=== PATIENT | male | born 1975 | race African-American/Black ===

== ENCOUNTER → 2024-06-29 14:56 | Outpatient (AMB) | payer OTHER, SELFPAY ==
--- NOTE | 2024-06-29 14:58 | A.OFFVIS_ITS ---
Vital Signs 06/29/24 15:05 Height 5 ft 8 in Weight 234 lb 9.149 oz BMI 35.7 BP 144/86 H Blood Pressure Location Rt brachial Position Sitting Pulse 76 Pulse Source Pulse Oximeter Pulse Oximetry (%) 97 Oxygen Delivery Method Room Air Intake Visit Reasons: [place] consult Intake Note: NEW PATIENT Luis presents in office today for a scheduled colo scrn. Prior hx of colo/egd? None Meds and Allergies reviewed? Y Any significant concerns or questions? No abnormalities noted. Pharmacy verified? [facility] Radio Intelligence Operator Required: No Allergies No Known Allergies Allergy (Verified 06/29/24 15:01) HPI HPI [place] consult: Details: 48 year old? male with no significant past medical history is here today for pre colonoscopy screening.? Patient was sent to us by his PCP.? This is his first colonoscopy screening.? Patient denies any gastrointestinal symptoms in the past or at present.? Denies any personal or family history of gastrointestinal disease, colon polyps, or CRC.? Denies history of difficulty with sedation or anesthesia in the past.? Negative for history of sleep apnea.? Denies any history of cardiac, renal, pulmonary, or hepatic disease.?? No history of infectious? diseases like hepatitis A, B, C, HIV or tuberculosis.? Patient is not on any anticoagulation [facility] Medical History (Updated 06/29/24 @ 15:03 by Chris Reddy [facility]) HTN (hypertension) Social History Alcohol intake: current Comment: A few times per year Patient Tobacco Use Status: Former Tobacco user Tobacco use type: Cigarette Substance Use Type: Marijuana Review of Systems Const Denies weight gain and Denies weight loss ENT Reports no additional complaints, Denies dysphagia and Denies odynophagia Card Reports no additional complaints Resp Reports no additional complaints GI Denies abdominal pain, Denies belching, Denies melena, Denies bloating, Denies change in bowel habits, Denies dysphagia, Denies excessive flatus, Denies dyspepsia, Denies heartburn, Denies diarrhea, Denies loose stools, Denies nausea, Denies odynophagia and Denies vomiting Reports no additional complaints Musc Reports no additional complaints Neuro Reports no additional complaints Psych Reports no additional complaints Endo Reports no additional complaints Physical Exam Const General: healthy appearing and no acute distress Nutritional Appearance: obese Orientation/consciousness: patient oriented x3 Resp Effort & Inspection: normal respiratory effort, able to speak in complete sentences, no tracheal deviation and symmetric chest movement Auscultation: clear to auscultation bilaterally Cardio Rate: regular rate GI Inspection: Yes normal to inspection and No distended Palpation (GI): Soft to palpation, not firm, nontender and No hepatosplenomegaly present Auscultation: normal bowel sounds General: Yes no CVA tenderness Back/Spine/Pelvis Back: no CVA tenderness Skin General skin exam: elasticity normal, turgor normal and dry skin Neuro General: patient oriented x3 Psych Appearance: grossly normal Mental Status: mental status grossly normal Assessment & Plan Assessment & Plan (1) Screen for colon cancer: Code(s): Z12.11 - Encounter for screening for malignant neoplasm of colon Plan Patient denies any GI, cardiac or respiratory symptoms.? Denies any issues with anesthesia in the past.? Denies any history of sleep apnea.? No history infectious diseases in the past or present.? Not on any anticoagulation thera py.? No family or personal history of colon cancer or polyps.? Patient denies melena, hematochezia, unintentional weight loss or ribbon like stools.? Discussed at length the pre-procedure,? prep, diet & medications as well as what to expect prior, during and after the procedure.?? Stressed the importance of good bowel prep.? Recommended the use of Vaseline or Calmoseptine OTC & baby wipes with bowel movements to promote comfort.? ?Patient verbalizes understanding and agrees to plan of care.? He was given the opportunity to ask questions and all questions answered.? We will see him after the procedure.? Medications: New polyethylene glycol 3350 (Miralax) As directed by gastroenterology department at [facility] 238 grams PO ONCE 238 grams 0RF Z12.11 - Encounter for screening for malignant neoplasm of colon bisacodyl (Dulcolax (bisacodyl)) take 4 tabs at noon the day before your colonoscopy 20 mg (4 x 5 mg) PO ONCE 1 day 4 tabs 0RF Z12.11 - Encounter for screening for malignant neoplasm of colon Coding Level of Care Code New Pt Level 3 (12303) Diagnoses Screen for colon cancer Z12.11 Time Spent (min) 40 Comment 30 minutes spent with patient and additional 10 minutes spent reviewing his records
[2024-06-29 15:05] VITALS: BP 144/86; PULSE 76; O2SAT 97; BMI 35.7
== END ==
PROVIDERS: Visit Provider Nurse Practitioner Family
DX: Z01.818 Encounter for other preprocedural examination (principal); Z12.11 Encounter for screening for malignant neoplasm of colon
CPT/HCPCS: S0285

== ENCOUNTER → 2024-06-29 14:56 | Outpatient (BNVA) | payer OTHER, SELFPAY | PROVIDERS: Visit Provider Nurse Practitioner Family ==

== ENCOUNTER 2024-10-10 07:40 | Day surgery (SDC) | payer OTHER, SELFPAY ==
--- OUTSIDE RECORDS SUMMARY | 2024-09-08 14:42 | XMS_ITS | Clinical Summary ---
Author Organization [facility] Address [address] [place] [address] Care Team Providers Care Environmental Technician Name Role Phone Unknown Primary Care Provider [phone] Allergies No known active allergies Medications Medication Sig Dispensed Refills Start Date End Date Status ibuprofen (MOTRIN) 600 MG tablet Take 1 tablet (600 mg total) by mouth 4 times daily (every 6 hours) as needed for mild pain (pain). 20 tablet 10/15/2018 Active Social History Tobacco Use Types Packs/Day Years Used Date Smoking Tobacco: Light Smoker Smokeless Tobacco: Never Sex and Gender Information Value Date Recorded Sex Assigned at Not on file Gender Identity Not on file Sexual Orientation Not on file Last Filed Vital Signs Vital Sign Reading Time Taken Comments Blood Pressure 142/100 06/03/2020 7:43 AM EST Pulse 72 06/03/2020 7:43 AM EST Temperature 36.4 ??C (97.6 ??F) 06/03/2020 7:43 AM ES T Respiratory Rate 16 06/03/2020 7:43 AM EST Oxygen Saturation 99% 06/03/2020 7:43 AM EST Inhaled Oxygen Concentration - - Weight 104 kg (230 lb) 06/08/2018 6:57 PM EST Height - - Body Mass Index - - Plan of Treatment Health Maintenance Due Date Last Done Comments Hepatitis C Virus Screening 1976 HIV Screening 1989 DTaP/Tdap/Td Vaccines (1 - Tdap) 10/21/1995 Hepatitis B Vaccines (1 of 3 - 19+ 3-dose series) 10/21/1995 Colonoscopy 2021 Influenza Vaccine 02/10/2024 COVID-19 Vaccine (2023-2 5 season) 2024 Pneumococcal Vaccine: Pediat reece (0-5 Years) and At-Risk Patients (6 to 49 Years) Aged Out No longer eligible b ased on patient's age to complete this topic Care Teams Environmental Technician Relationship Specialty Start Date End Date Unknown Unknow Provider Address PCP - General 06/08/18
[2024-10-06 13:54] VITALS: BMI 35.7
--- NOTE | 2024-10-09 09:16 | P.CONAN_ITS ---
Documented by User: Unique Rivas NP 10/09/24 09:16 HPI - Anesthesia Eval Consult details Narrative: 48yo M for Colonoscopy [facility] Past Medical History Medical History HTN (hypertension) Surgical History Surgical History Hx of wisdom tooth extraction Social History Social History Are you a primary nursing care partner to a significant other at home: No Do you presently have visiting nurse or other home services: No Alcohol intake: current Comment: A few times per year Patient Tobacco Use Status: Former Tobacco user Tobacco use type: Cigarette Substance Use Type: Marijuana Substance Use Frequency: Daily Have you been hit, kicked, punched, or otherwise hurt by someone within the past year? If so, by whom?: No Are you DNR?: No Advance Directives: No Advance Directives Information Provided: Yes Meds Allergies Allergy/AdvReac Type Severity Reaction Status Date / Time No Known Allergies Allergy Verified 10/10/24 08:01 Home Medications ?Medication ?Instructions ?Recorded ?Confirmed ?Last Taken ?Type sildenafil 50 mg tablet 50 mg PO DAILY PRN Erectile 06/26/24 10/10/24 Unknown History Dysfunction lisinopril 5 mg tablet 5 mg PO DAILY 06/29/24 10/10/24 Unknown History Exam Height,Weight and Vital Signs: Height 5 ft 8 in Weight 106.399 kg Assessment and Plan Assessment Anesthesia Assessment: Chart Reviewed Documented by User: Yaneli Cobb MD 10/10/24 08:22 [facility] Past Medical History Medical History HTN (hypertension) Surgical History Surgical History Hx of wisdom tooth extraction History of Problems with Anesthesia: No Social History Social History Are you a primary nursing care partner to a significant other at home: No Do you presently have visiting nurse or other home services: No Alcohol intake: current Comment: A few times per year Patient Tobacco Use Status: Former Tobacco user Tobacco use type: Cigarette Substance Use Type: Marijuana Substance Use Frequency: Daily Have you been hit, kicked, punched, or otherwise hurt by someone within the past year? If so, by whom?: No Are you DNR?: No Advance Directives: No Advance Directives Information Provided: Yes Meds Allergies Allergy/AdvReac Type Severity Reaction Status Date / Time No Known Allergies Allergy Verified 10/10/24 08:01 Home Medications ?Medication ?Instructions ?Recorded ?Confirmed ?Last Taken ?Type sildenafil 50 mg tablet 50 mg PO DAILY PRN Erectile 06/26/24 10/10/24 Unknown History Dysfunction lisinopril 5 mg tablet 5 mg PO DAILY 06/29/24 10/10/24 Unknown History Exam Airway Mallampati Class: III TM Dist: >3cm Neck ROM: Full Loose/Missing/Broken Teeth: No Heart: RRR Lungs: CTA Assessment and Plan Assessment Anesthesia Assessment: Anesthesia Plan Discussed Final Anesthetic Review History of Problems with Anesthesia: No NPO: Yes ASA Class: II Final Preanesthetic Review: Meds/Allgs Chart Reviewed, Consent Obtained/Reviewed and Anes Risks/Benef Reviewed Patient Risk: Low Procedure Risk: Low Anesthetic Plan Anesthetic Plan: MAC: Disposition: Standard PACU
[2024-10-10 08:00] VITALS: BMI 33.1
[2024-10-10] MEDS: Lactated Ringers 1,000 ML 100 ML IVCONT (08:05)
[2024-10-10 08:11] VITALS: BP 148/85; PULSE 72; RESP 18; TEMP 36.7; O2SAT 96
--- NOTE | 2024-10-10 08:11 | MHC.SHP ---
Pre-Procedural Eval Section A - 24 Hr Update-Section A only Date of Service: 10/10/24 Section B - Complete if H&P > 30 days Chief Complaint: Encounter for screening for malignant neoplasm of Relevant Family History (Specify if Yes): No Relevant Social History: Other (specify) (THC) Present Medications: see Short Stay Collaborative assessment Medical History: Significant History (HTN (hypertension)) History of Previous Operations: No relevant previous surgery Allergies: Allergies Allergy/AdvReac Type Severity Reaction Status Date / Time No Known Allergies Allergy Verified 10/10/24 08:01 Review of Systems Sugical H&P ROS: Negative: Constitution, Cardiovascular, Respiratory, Neurological, Psychiatric, Hem-Onc, Allergic/Immunologic, Gastrointestinal, Genitourinary, Musculoskeletal, Integumentary, Endocrine and Eyes/Ears/Nose/Throat Exam Surgical H&P Exam: Normal: HEENT, Normal: Heart, Normal: Lungs, Normal: Extremities, Normal: Abdomen, Normal: Skin and Normal: Neurological Plan Diagnosis/Plan: Unchanged I have reviewed the history and physical and performed a pertinent physical examination on my patient. No changes have occurred unless specified. Time Spent With Patient Time: Total time managing care of this patient today ____ minutes.
--- NOTE | 2024-10-10 09:51 | HO.OPN-COLON ---
Colonoscopy Operative Note Operative Note Date of Service: 10/10/24 Narrative: Operative Information Procedure Description: Colonoscopy Indication: screening Anesthesia: MAC COLONOSCOPY Instrument: Olympus variable stiffness pediatric scope 190L Colonoscopy Monitoring: Vital signs and clinical assessment, continuous EKG monitoring, Pulse oximetry, Carbon Dioxide monitoring and blood pressure monitoring were done throughout the procedure. Colon withdrawal time was 15 minutes. Procedure: The patient was placed in the left lateral decubitis position and pre-procedure medications were administered. After a digital rectal examination of the ano-rectum, the video colonoscope was inserted into the rectum and advanced through the colon to the cecum/TI. The colonoscope was slowly withdrawn in a retrograde panoramic fashion and the colon mucosa was carefully examined including a retroflexed view of the rectum. Findings and interventions are described below. Procedure Difficulty: easy Findings: Terminal Ileum- erosive ileitis, moderate, bx taken Cecum:normal Ascending Colon: moderate diverticulosis, random bx taken Transverse Colon -normal Descending Colon: moderate diverticulosis, x 4 sessile polyps 4-8 mm noted. One removed with cold forceps and the others with cold snare Sigmoid Colon: severe diverticulosis with patchy erythema, and swollen folds. bx taken, almost looked polypoid Rectum: Retroflexion with moderate internal hemorrhoids seen, grade I, random bx taken, also 10-11 mm sessile polyp removed with cold snare, with x 1 clip applied for hemostasis. Anorectum - normal Intervention: codl forceps, cold snare Colon preparation: [place] Bowel Preparation Scale Right colon; 2 Transverse colon: 2 Left colon; 2 (0 = Unprepared colon segment with mucosa not seen due to solid stool that cannot be cleared. 1 = Portion of mucosa of the colon segment seen, but other areas of the colon segment not well seen due to staining, residual stool and/or opaque liquid. 2 = Minor amount of residual staining, small fragments of stool and/or opaque liquid, but mucosa of colon segment seen well. 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
[2024-10-10 09:56] VITALS: BP 104/69; PULSE 71; RESP 16; TEMP 36.3; O2SAT 98
[2024-10-10 10:11] VITALS: BP 108/65; PULSE 79; RESP 16; O2SAT 100
[2024-10-10 10:48] LABS: CDiff Gene PCR NEGATIVE (Negative)
[2024-10-14 18:34] LABS: Lactoferrin, Fecal, Quant. 15.52 mcg/mL (<7.25)
== END 2024-10-10 10:52 | disposition home or self-care (01) ==
PROVIDERS: Visit Provider Internal Medicine Gastroenterology
PROC: 0DJD8ZZ Inspection of Lower Intestinal Tract, Via Natural or Artificial Opening Endoscopic (ICD-10-PCS; CPT 45378; principal; 2024-10-10 09:10)
DX: Z12.11 Encounter for screening for malignant neoplasm of colon (principal); D12.4 Benign neoplasm of descending colon; D12.8 Benign neoplasm of rectum; K52.9 Noninfective gastroenteritis and colitis, unspecified; K57.30 Diverticulosis of large intestine without perforation or abscess without bleeding; K64.0 First degree hemorrhoids; I10 Essential (primary) hypertension; F12.90 Cannabis use, unspecified, uncomplicated; Z87.891 Personal history of nicotine dependence; Z79.899 Other long term (current) drug therapy
CPT/HCPCS: 45385; 45380; 83631; 87493; 88305; J2704

== ENCOUNTER → 2024-10-10 07:40 | Outpatient (BNV) | payer OTHER, SELFPAY | PROVIDERS: Visit Provider Internal Medicine Gastroenterology | DX: Z12.11 Encounter for screening for malignant neoplasm of colon (principal); D12.4 Benign neoplasm of descending colon; D12.8 Benign neoplasm of rectum; K52.9 Noninfective gastroenteritis and colitis, unspecified; K57.90 Diverticulosis of intestine, part unspecified, without perforation or abscess without bleeding; K64.8 Other hemorrhoids | CPT/HCPCS: 45380; 45385 ==

== ENCOUNTER 2025-01-09 11:04 | Day surgery (SDC) | payer BC, SELFPAY ==
--- OUTSIDE RECORDS SUMMARY | 2024-11-22 12:39 | XMS_ITS | Clinical Summary ---
Author Organization [facility] Address [address] [place] [id number] Care Team Providers Care Grades 9 12 Tutor Name Role Phone Unknown Primary Care Provider [phone] Allergies No known active allergies Medications ibuprofen (MOTRIN) 600 MG tablet Take 1 tablet (600 mg total) by mouth 4 times daily (every 6 hours) as needed for mild pain (pain). 20 tablet 10/15/2018 Active Social History Tobacco Use Types Packs/Day Years Used Date Smoking Tobacco: Light Smoker Smokeless Tobacco: Never Sex and Gender Information Value Date Recorded Sex Assigned at Not on file Legal Sex Male 4:15 PM EDT Gender Identity Not on file Sexual Orientation [...] - 19+ 3-dose series) 10/21/1995 Colonoscopy 2021 COVID-19 Vaccine (2023-2 5 season) 2024 Influenza Vaccine 02/09/2025 Pneumococcal Vaccine: Pediat reece (0-5 Years) and At-Risk Patients (6 to 49 Years) Aged Out No longer eligible b ased on patient's age to complete this topic Insurance [employer] OUT OF [facility] - [facility] [employer] OUT OF [facility] - PPO Care Teams Grades 9 12 Tutor Relationship Specialty Start Date End Date Unknown Unknow Provider Address PCP - General 06/08/18
--- OUTSIDE RECORDS SUMMARY | 2024-11-22 12:39 | XMS_ITS | Encounter Summary ---
Author Organization [facility] Address [address] [place] [address] Care Team Providers Care Political Geographer Name Role Phone Phillip Schreiber MD Primary Care Provider [phone] Yahir Beavers MD Primary Care Provider [phone] Dominik Ivy Primary Care Provider [phone] Encounter Details Date Type Department Care Team Description 08/23/2015 Release of Information Medical Records [address] [place] [id number] Abstract, Provider Social History Tobacco Use Types Packs/Day Years Used Date Smoking Tobacco: Every Day Cigarettes 1 Alcohol Use Standard Drinks/Week Comments Not Asked 0 (1 standard drink = 0.6 oz pur e alcohol) Sex Assigned at Date Recorded Not on file Job Start Date Occupation Industry Not on file Not on file Not on file documented as of this encounter Plan of Treatment Not on file documented as of this encounter Visit Diagnoses Not on filedocumented in this encounter Care Teams Political Geographer Relationship Specialty Start Date End Date Phillip Schreiber MD [address] [place] [address] PCP - General Internal Medicine 08/15/15 12/26/17 Yahir Beavers MD [address] [place] [address] PCP - General Internal Medicine 12/27/17 02/15/22 Dominik Ivy [address] [place] [address] PCP - General Internal Medicine 02/16/22 documented as of this encounter
--- OUTSIDE RECORDS SUMMARY | 2024-11-22 12:39 | XMS_ITS | Encounter Summary ---
Author Organization [facility] Address [address] [place] [address] Care Team Providers Care Executive Sales Manager Name Role Phone Yahir Beavers MD Primary Care Provider [phone] Dominik Ivy Primary Care Provider [phone] Encounter Details Date Type Department Care Team Description 03/17/2018 Release of Information Medical Records [address] [place] [id number] Abstract, Provider Social History Tobacco Use Types Packs/Day Years Used Date Smoking Tobacco: Every Day Cigarettes 1 Smokeless Tobacco: Never Comments:10 cigarettes a day Alcohol Use Standard Drinks/Week Comments Yes 0 (1 standard drink = 0.6 oz pur e alcohol) occasioanlly Sex Assigned at Date Recorded Not on file Job Start Date Occupation Industry Not on file Not on file Not on file documented as of this encounter Plan of Treatment Not on file documented as of this encounter Visit Diagnoses Not on filedocumented in this encounter Care Teams Executive Sales Manager Relationship Specialty Start Date End Date Yahir Beavers MD [address] [place] [address] PCP - General Internal Medicine 12/27/17 02/15/22 Dominik Ivy [address] [place] [address] PCP - General Internal Medicine 02/16/22 documented as of this encounter
--- OUTSIDE RECORDS SUMMARY | 2024-11-22 12:39 | XMS_ITS | Clinical Summary ---
Author Organization [facility] Address [address] [place] [address] Care Team Providers Care Store Receiving Specialist Name Role Phone Dominik Ivy Primary Care Provider [phone] Allergies No known active allergies Medications Medication Sig Dispensed Refills Start Date End Date Status sildenafil (Viagra) 50 MG tablet Take 1 tablet 30 minutes before intercourse as needed. 10 Tablet 3 10/19/2022 Active acetaminophen (Tylenol 8 Hour) 650 MG CR tablet Take 1 Tablet by mouth every 8 hours as needed for Pain. 60 Tablet 0 12/14/2022 Active cyclobenzaprine (FLEXERIL) 5 MG tablet Take 1 Tablet by mouth 3 times daily as needed for Muscle spasms. 30 Tablet 0 12/14/2022 Active Diclofenac Sodium 1 % Gel Apply 1 Applicator topically 2 times daily as needed (As needed for pain). 30 g 1 12/14/2022 Active Active Problems Problem Noted Date Obesity (BMI 35.0-39.9 without comorbidi ty) 10/19/2022 Bilateral impacted cerumen 10/19/2022 Snoring 10/19/2022 Onychomycosis 10/19/2022 Erectile dysfunction 10/19/2022 Elevated cholesterol 03/16/2018 Cigarette smoker 03/16/2018 History of diverticulitis 03/16/2018 Immunizations Name Administration Dates Next Due Tdap 10/19/2022 Family History Medical History Relation Name Comments Diabetes Daughter Hypertension Father cerberal palsy Sister CAD Negative Hx Cancer, Other Negative Hx Relation Name Status Comments Daughter Alive Father Sister Social History Tobacco Use Types Packs/Day Years Used Date Smoking Tobacco: Every Day Cigarettes 1 Smokeless Tobacco: Never Tobacco Cessation:Ready to Q uit: Not Asked; Counseling Given: Not Answered Comments:10 cigarettes a day Alcohol Use Standard Drinks/Week Comments Yes 0 (1 standard drink = 0.6 oz pur e alcohol) occasioanlly Sex Assigned at Date Recorded Not on file Job Start Date Occupation Industry Not on file Not on file Not on file Last Filed Vital Signs Vital Sign Reading Time Taken Comments Blood Pressure 130/80 12/30/2022 3:23 PM EDT Pulse 68 12/30/2022 3:23 PM EDT Temperature 36.9 ??C (98.5 ??F) 12/14/2022 3:40 PM ED T Respiratory Rate 15 12/30/2022 3:23 PM EDT Oxygen Saturation - - Inhaled Oxygen Concentration - - Weight 103.4 kg (228 lb) 12/30/2022 3:23 PM EDT Height 172.7 cm (5' 8 ) 12/30/2022 3:23 PM EDT Body Mass Index 34.67 12/30/2022 3:23 PM EDT Plan of Treatment Health Maintenance Due Date Last Done Comments Covid-19 Vaccine (#1) 04/21/1976 BMI CHECK/ADVISE 07/12/2024 12/14/2022, 04/2023, 03/16/2018, Additional history exists BASELINE HEALTH EXAM 40-64 10/22/202410/22, 10/19/2022, 03/16/2018, Additional history exists TOBACCO CHECK/ADVISE 11/26/2024 11/26/2022, 10/22/2022, 10/19/2022, Additional history exists INFLUENZA (Season Ended) 2025 CHOLESTEROL SCREENING 10/23/2027 10/22/2022 , 03/16/2018, 08/22/2015 DTAP/TDAP/TD (2 - Td or Tdap) 10/19/2032 10/19/2022 PNEUMOCOCCAL VACCINE FOR HIG H RISK PATIENTS (#1) 2041 Care Teams Store Receiving Specialist Relationship Specialty Start Date End Date Dominik Ivy [address] [place] [id number] PCP - General Internal Medicine 02/16/22
[2025-01-05 10:51] VITALS: BMI 35.6
--- NOTE | 2025-01-08 12:38 | HO.ANESPROP2 ---
Documented by User: Unique Rivas NP 01/08/25 12:39 HPI - Anesthesia Eval Consult details Narrative: 49yo M for Sigmoidoscopy Flexible [facility] Past Medical History Medical History HTN (hypertension) Surgical History Surgical History Hx of wisdom tooth extraction History of Problems with Anesthesia: No Social History Social History Are you a primary wound care rn to a significant other at home: No Do you presently have visiting nurse or other home services: No Alcohol intake: current Comment: A few times per year Patient Tobacco Use Status: Former Tobacco user Tobacco use type: Cigarette Substance Use Type: Marijuana Meds Allergies Allergy/AdvReac Type Severity Reaction Status Date / Time No Known Allergies Allergy Verified 10/10/24 08:01 Home Medications ?Medication ?Instructions ?Recorded ?Confirmed ?Last Taken ?Type sildenafil 50 mg tablet 50 mg PO DAILY PRN Erectile 06/26/24 10/10/24 Unknown History Dysfunction lisinopril 5 mg tablet 5 mg PO DAILY 06/29/24 10/10/24 Unknown History Exam Height,Weight and Vital Signs: Height 5 ft 8 in Weight 106.141 kg Assessment and Plan Assessment Anesthesia Assessment: Chart Reviewed Final Anesthetic Review History of Problems with Anesthesia: No Documented by User: Yaneli Cobb MD 01/09/25 11:37 [facility] Past Medical History Medical History HTN (hypertension) Surgical History Surgical History Hx of wisdom tooth extraction Social History Social History Are you a primary wound care rn to a significant other at home: No Do you presently have visiting nurse or other home services: No Alcohol intake: current Comment: A few times per year Patient Tobacco Use Status: Former Tobacco user Tobacco use type: Cigarette Substance Use Type: Marijuana Meds Allergies Allergy/AdvReac Type Severity Reaction Status Date / Time No Known Allergies Allergy Verified 10/10/24 08:01 Home Medications ?Medication ?Instructions ?Recorded ?Confirmed ?Last Taken ?Type sildenafil 50 mg tablet 50 mg PO DAILY PRN Erectile 06/26/24 10/10/24 Unknown History Dysfunction lisinopril 5 mg tablet 5 mg PO DAILY 06/29/24 10/10/24 Unknown History Exam Airway Mallampati Class: III TM Dist: >3cm Neck ROM: Full Loose/Missing/Broken Teeth: No Heart: RRR Lungs: CTA Assessment and Plan Assessment Anesthesia Assessment: Anesthesia Plan Discussed Final Anesthetic Review NPO: Yes ASA Class: II Final Preanesthetic Review: Meds/Allgs Chart Reviewed, Consent Obtained/Reviewed and Anes Risks/Benef Reviewed Patient Risk: Low Procedure Risk: Low Anesthetic Plan Anesthetic Plan: MAC: Disposition: Standard PACU
[2025-01-09 11:18] VITALS: BMI 33.9
--- NOTE | 2025-01-09 11:24 | MHC.SHP ---
Pre-Procedural Eval Section A - 24 Hr Update-Section A only Date of Service: 01/09/25 Section B - Complete if H&P > 30 days Chief Complaint: Other ulcerative colitis with other complication Relevant Family History (Specify if Yes): No Relevant Social History: Tobacco Use Present Medications: see Short Stay Collaborative assessment Medical History: Significant History (HTN (hypertension)) History of Previous Operations: Relevant previous surgery/procedure and date(s) (Hx of wisdom tooth extraction) Allergies: Allergies Allergy/AdvReac Type Severity Reaction Status Date / Time No Known Allergies Allergy Verified 10/10/24 08:01 Review of Systems Sugical H&P ROS: Negative: Constitution, Cardiovascular, Respiratory, Neurological, Psychiatric, Hem-Onc, Allergic/Immunologic, Gastrointestinal, Genitourinary, Musculoskeletal, Integumentary, Endocrine and Eyes/Ears/Nose/Throat Exam Surgical H&P Exam: Normal: HEENT, Normal: Heart, Normal: Lungs, Normal: Extremities, Normal: Abdomen, Normal: Skin and Normal: Neurological Plan Diagnosis/Plan: Unchanged I have reviewed the history and physical and performed a pertinent physical examination on my patient. No changes have occurred unless specified. Time Spent With Patient Time: Total time managing care of this patient today ____ minutes.
[2025-01-09 11:28] VITALS: BP 146/88; PULSE 69; RESP 16; TEMP 36.9; O2SAT 97
[2025-01-09] MEDS: Lactated Ringers 1,000 ML 100 ML IVCONT (11:30)
--- NOTE | 2025-01-09 12:07 | W.PM.OPN ---
Operative Note Operative Note Date of Service: 01/09/25 Narrative: Procedure Description: sigmoidoscopy Indication: colitis Anesthesia: MAC Sigmoidoscopy Instrument: pediatric colonoscope Colonoscopy Monitoring: Vital signs and clinical assessment, continuous EKG monitoring, Pulse oximetry, Carbon Dioxide monitoring and blood pressure monitoring were done throughout the procedure. Procedure: The patient was placed in the left lateral decubitis position and pre-procedure medications were administered. After a digital rectal examination of the ano-rectum, the video colonoscope was inserted into the rectum and advanced through the colon to the sigmoid colon The scope was slowly withdrawn in a retrograde panoramic fashion and the colon mucosa was carefully examined . Findings and interventions are described below. Procedure Difficulty: easy Findings: Transverse Colon- patchy diverticulosis, x2 sessile polyps 6-9 mm removed with cold snare Descending colon- moderate diverticulosis, random bx taken Sigmoid Colon: severe diverticulosis with several swollen inflammed folds padma mid sigmoid, bx taken Rectum: Normal , retroflexion with small internal hemorrhoids, bx taken from rectum Anorectum - normal Colon preparation: good Impression and Post Procedure Diagnosis: possible SCAD severe diverticulosis internal hemorrhoids polyps Plan: await BX depending on results will consider next step, re CT e vs treatment with steroid enema (unable to take PO or rectal mesalamine due to headaches), if any adenomatous tissue on bx then discuss surgery vs endoscopic removal avoid smoking and nsaids Above findings were reviewed with the patient and relevant handouts were provided if indicated.
[2025-01-09 12:11] VITALS: BP 119/70; PULSE 65; RESP 18; TEMP 36.2; O2SAT 100
[2025-01-09 12:26] VITALS: BP 122/86; PULSE 59; RESP 16; O2SAT 98
[2025-01-09 12:40] VITALS: BP 132/81; PULSE 59; RESP 16; TEMP 36.4; O2SAT 98
[2025-01-13 18:39] LABS: Lactoferrin, Fecal, Quant. <6.25 mcg/mL (<7.25)
== END 2025-01-09 13:16 | disposition home or self-care (01) ==
PROVIDERS: Visit Provider Internal Medicine Gastroenterology
PROC: 0DJD8ZZ Inspection of Lower Intestinal Tract, Via Natural or Artificial Opening Endoscopic (ICD-10-PCS; CPT 45330; principal; 2025-01-09 11:30)
DX: Z12.11 Encounter for screening for malignant neoplasm of colon (principal); K52.89 Other specified noninfective gastroenteritis and colitis; D12.3 Benign neoplasm of transverse colon; K64.0 First degree hemorrhoids; K57.30 Diverticulosis of large intestine without perforation or abscess without bleeding; I10 Essential (primary) hypertension; Z79.899 Other long term (current) drug therapy; Z87.891 Personal history of nicotine dependence
CPT/HCPCS: 45385; 45380; 83631; 88305; J2003; J2704

== ENCOUNTER → 2025-01-09 11:04 | Outpatient (BNV) | payer BC, SELFPAY | PROVIDERS: Visit Provider Internal Medicine Gastroenterology | DX: K63.5 Polyp of colon (principal); K57.90 Diverticulosis of intestine, part unspecified, without perforation or abscess without bleeding | CPT/HCPCS: 45331; 45333 ==